=== PATIENT | female | born 1995 | race African-American/Black ===

== ENCOUNTER 2017-01-16 23:49 | Emergency (ER) | payer MEDICAID ==
[2017-01-17] MEDS ORDERED: LORAZEPAM INJ 2 MG/1 ML VIAL ONE (00:06)
[2017-01-17 00:53] VITALS: BP 126/76
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
== END 2017-01-17 01:14 | disposition home or self-care (01) ==
LOC: ER 23:49
DX: F41.9 Anxiety disorder, unspecified (principal); F41.0 Panic disorder [episodic paroxysmal anxiety]
CPT/HCPCS: 99283; 96374; J2060